=== PATIENT | male | born 1970 | race Caucasian/White ===

== ENCOUNTER → 2021-02-25 | Outpatient (CLI) | payer OTHER ==
--- NOTE | 2021-02-25 11:29 | PFTRPT ---
Site: [facility], [address] [place] [address], [id number] ID: [id number] Name: RIO DUVALL Visit Date: 02/25/2021 Second ID: [id number] Reviewing Doctor: Adolph Banegas MD [employer]: Constance Doyle RRT Age: 51 : 1970 Sex: Male Race: Height: 72.00 Inches Weight: 261.00 Lbs BSA: 2.39 Order IDs: [id number] Requested Test(s): <RESP-PFT.PFT B/A> Diagnosis: R0602 of albuterol for post bronchodilator. Review Status: Not Reviewed Pre-Bronch Post-Bronch Pred Actual %Pred Actual %Chng SPIROMETRY FVC (L) 5.42 4.45 82 4.64 4 FEV1 (L) 4.21 3.41 80 3.69 8 FEV1/FVC (%) 78 77 98 79 3 FEF 25% (L/sec) 8.74 6.43 73 7.32 13 FEF 50% (L/sec) 5.50 3.58 65 4.51 26 FEF 75% (L/sec) 1.90 1.15 60 1.67 44 FEF 25-75% (L/sec) 3.71 2.90 78 3.77 30 FEF Max (L/sec) 10.33 7.26 70 8.41 15 FIVC (L) 3.59 3.13 -12 FIF 50% (L/sec) 5.00 1.46 29 5.12 250 FIF Max (L/sec) 3.90 5.17 32 MVV (L/min) 161 123 76 Expiratory Time (sec) 6.28 6.69 6 Back Extrap Vol (L) 0.22 0.17 -23 Time To FEFmax (sec) 0.132 0.113 -14 LUNG VOLUMES SVC (L) 5.23 4.05 77 IC (L) 3.58 3.86 107 ERV (L) 1.65 0.20 11 TGV (L) 3.78 4.15 109 RV (Pleth) (L) 2.13 3.95 185 TLC (Pleth) (L) 7.36 8.01 108 RV/TLC (Pleth) (%) 29 49 170 DIFFUSION DLCOunc (ml/min/mmHg) 31.76 32.53 102 DL/VA (ml/min/mmHg/L) 4.32 4.72 109 VA (L) 7.36 6.90 93 BHT (sec) 9.50 IVC (L) 3.59 TLC (SB) (L) 7.05 AIRWAYS RESISTANCE Raw (cmH2O/L/s) 1.45 0.88 60 Gaw (L/s/cmH2O) 1.03 2.08 202 sRaw (cmH2O*s) 4.76 4.30 90 sGaw (1/cmH2O*s) 0.20 0.24 120
== END ==
LOC: M CARPUL 10:44
DX: R06.02 Shortness of breath (principal)

== ENCOUNTER → 2022-06-09 | Outpatient (CLI) | payer OTHER | LOC: M RAD 15:36 | PROVIDERS: ATTEND Nurse Practitioner Family | DX: M54.50 Low back pain, unspecified (principal) ==

== ENCOUNTER → 2022-07-27 | Outpatient (REF) | payer OTHER ==
[2022-07-27 18:18] LABS: APPEARANCE, URINE CLEAR (CLEAR); BACTERIA, URINE AUTO NEGATIVE (NEGATIVE); BILIRUBIN, URINE AUTO NEGATIVE (NEGATIVE); BLOOD, URINE BLOOD NEGATIVE (NEGATIVE); COLOR, URINE YELLOW (YELLOW); GLUCOSE, URINE (UA) AUTO NEGATIVE (NEGATIVE); KETONE, URINE AUTO NEGATIVE (NEGATIVE); LEUKOCYTE ESTERASE, URINE AUTO NEGATIVE (NEGATIVE); MUCUS, URINE SMALL (NEGATIVE); NITRITE, URINE AUTO NEGATIVE (NEGATIVE); PROTEIN, URINE AUTO NEGATIVE (NEGATIVE); RBC, URINE AUTO 0 /HPF (0-3); SPECIFIC GRAVITY URINE AUTO 1.013 (1.002-1.035); SQUAMOUS EPITHELIAL CELL UR AU 0 /HPF (0-6); UROBILINOGEN, URINE AUTO 0.2 mg/dL (0.0-2.0); WBC, URINE AUTO 0 /HPF (0-3)
== END ==
LOC: M SMT 17:26
PROVIDERS: ATTEND Urology
DX: R39.15 Urgency of urination (principal)

== ENCOUNTER → 2022-09-15 | Outpatient (CLI) | payer OTHER | LOC: M PLALAB 11:11 | PROVIDERS: ATTEND Urology | DX: Z12.5 Encounter for screening for malignant neoplasm of prostate (principal) | CPT/HCPCS: 36415; G0103 ==

== ENCOUNTER 2022-11-09 10:28 | Day surgery (SDC) | payer OTHER ==
[~2022-11-09] VITALS: Ht 182.9 cm; Wt 116.9 kg
[~2022-11-09 10:28] MED LIST: B-2100TA PO; LISI40TA4 PO; MELO15TA28 PO; METH-1165 PO; TAMS1CAP17 PO; VITA500T40 PO; VITAD1000T PO; ceFAZolin SOD 2 GM in IV 1 EA IV ONE
[2022-11-09] MEDS ORDERED: LR 1,000 ML IV SCH ×2 (11:30→14:00)
[2022-11-09] MEDS ORDERED: ROCURONIUM BROMIDE 50MG/5ML VIAL As Ordered ONE (13:05)
[2022-11-09] MEDS ORDERED: fentaNYL 100 MCG/2 ML INJECTION As Ordered ONE (13:05)
[2022-11-09] MEDS ORDERED: ONDANSETRON 4MG 2ML VIAL As Ordered ONE (13:05)
[2022-11-09] MEDS ORDERED: propofoL 200 MG/20 ML VIAL As Ordered ONE (13:05)
[2022-11-09] MEDS ORDERED: MIDAZOLAM INJ 2MG/2ML VIAL As Ordered ONE (13:06)
[2022-11-09] MEDS ORDERED: LIDOCAINE 2% 100MG/5ML SDV (FOR ANES.) As Ordered ONE (13:09)
[2022-11-09] MEDS ORDERED: SCOPOLAMINE 1MG TRANSDERMAL PATCH As Ordered ONE (13:20)
[2022-11-09] MEDS: ceFAZolin 2 GM/D5W 50 ML IV BAG As Ordered ONE ×2 (13:31→13:54)
[2022-11-09] MEDS ORDERED: ACETAMINOPHEN 1000MG 100ML IV BAG As Ordered ONE (13:41)
[2022-11-09] MEDS ORDERED: KETAMINE HCL 200MG/20ML VIAL As Ordered ONE (13:41)
[2022-11-09] MEDS ORDERED: HYDROMORPHONE HCL 0.5 MG/ 0.5 ML SYRINGE IV PRN (14:00)
[2022-11-09] MEDS ORDERED: ONDANSETRON 4MG 2ML VIAL IV PRN (14:00)
[2022-11-09] MEDS ORDERED: fentaNYL 100 MCG/2 ML INJECTION IV PRN (14:00)
[2022-11-09] MEDS ORDERED: PYRI1TAB5 PO (14:11)
[2022-11-09] MEDS ORDERED: OXYB5TAB10 PO (14:11)
[2022-11-09] MEDS ORDERED: MACR100C43 PO (14:11)
[2022-11-09] MEDS: PHENYLEPHRINE 10MG/ML 1ML VIAL IV PRN ×2 (14:20→14:25)
[2022-11-09 16:20] VITALS: BP 136/77; TEMP 97; O2SAT 94
== END 2022-11-09 16:25 | disposition home or self-care (01) ==
LOC: M SDC 10:28
PROVIDERS: ATTEND Urology
DX: C67.9 Malignant neoplasm of bladder, unspecified (principal); I10 Essential (primary) hypertension; F41.9 Anxiety disorder, unspecified; Z88.5 Allergy status to narcotic agent; Z87.891 Personal history of nicotine dependence; Z79.899 Other long term (current) drug therapy
CPT/HCPCS: 52235; 88305; J0131; J0690; J1100; J2250; J2370; J2405; J3010

== ENCOUNTER → 2022-11-16 | Outpatient (REF) | payer OTHER ==
[~2022-11-16] MED LIST changes: +MACR100C43 PO; +OXYB5TAB10 PO; +PYRI1TAB5 PO; -ceFAZolin SOD 2 GM in IV 1 EA IV ONE
== END ==
LOC: M SMT 16:51
PROVIDERS: ATTEND Urology
DX: C67.9 Malignant neoplasm of bladder, unspecified (principal)

== ENCOUNTER → 2023-01-25 | Outpatient (CLI) | payer OTHER ==
[~2023-01-25] MED LIST changes: +ISOVUE-370 76% 100ML VIAL As Ordered ONE
== END ==
LOC: M RAD 17:19
PROVIDERS: ATTEND Urology
DX: C67.9 Malignant neoplasm of bladder, unspecified (principal)
CPT/HCPCS: 74178; Q9967